=== PATIENT | female | born 2005 | race Caucasian/White ===

== ENCOUNTER 2024-08-07 20:01 | Emergency (ER) | payer OTHER, SELFPAY ==
--- NOTE | 2024-08-07 20:13 | ED_ITS ---
HPI - General Adult General Chief complaint: Abdominal Pain Stated complaint: vomiting and abd pain Time Seen by Provider: 08/07/24 21:32 Source: patient Limitations: no limitations History of Present Illness ED Provider: Vannesa Toscano PA-C HPI narrative: 18-year-old female presents with the acute onset nausea vomiting. Associated upper abdominal discomfort, with loose stools. Denies known sick contacts with similar symptoms. No use of antibiotics recent travel or hospitalization. Related Data Previous Rx's ?Medication ?Instructions ?Recorded ondansetron HCl 4 mg tablet 4 mg PO Q8H PRN nausea and 08/07/24 vomiting #10 tabs sucralfate 100 mg/mL oral 10 ml PO QID PRN indigestion #300 08/07/24 suspension (Carafate) mL Allergies Allergy/AdvReac Type Severity Reaction Status Date / Time No Known Allergies Allergy Verified 08/07/24 20:15 Review of Systems 2 Review of Systems: Yes all other systems are reviewed and are negative Constitutional: Constitutional: Denies fatigue and Denies fever(s) Cardiovascular: Cardiovascular: Denies chest pain and Denies dyspnea Respiratory: Respiratory: Denies chest congestion, Denies cough and Denies dyspnea Gastrointestinal: Gastrointestinal: Reports abdominal pain, Reports diarrhea, Reports nausea and Reports vomiting Endocrine: Endocrine: Denies fatigue PMFSH Past Medical History Attestation statement: The following information was validated with the patient. Social History Social History Smoked in Last 30 Days: No Use of substances other than those prescribed or required for medical reasons: No Advance Directives: No Advance Directives Information Provided: No Do you have a plan to hurt others: No Plan Patient : No Physical Exam ED Vital Signs: Vital Signs - 24 hr 08/07/24 20:15 Temperature 97.3 F Pulse Rate 98 Respiratory Rate 16 Blood Pressure 117/74 Pulse Oximetry 98 Oxygen Delivery Method Room Air BMI result Body Mass Index 21.8 Const Other: Alert Orientation/consciousness: patient oriented x3 Resp Effort & Inspection: normal respiratory effort Cardio Other: normal peripheral perfusion GI Other: abdomen is soft, nontender nondistended no guarding Skin Other: warm dry no rash Neuro General: patient oriented x3, gait normal, no focal motor deficits and CN's II- XI intact bilaterally Psych Other: cooperative Course Course Course Narrative: RME performed by Pratibha Manzo PA-C. Patient is a 18 year old assigned female at presenting to the emergency department with epigastric pain, nausea, and vomiting. Detailed physical exam and review of systems are deferred to the placement secretary. Labs and swabs ordered. Patient placed back in the waiting room pending room availability and results. Reevaluation(s) Reevaluation #1: Pt feels better eager for discharge Time: 23:35 Medications Administered Discontinued Medications Generic Name Dose Route Start Last Admin Trade Name Cristhian PRN Reason Stop Dose Admin Sodium Chloride 1,000 mls @ 999 mls/hr 08/07/24 22:15 08/07/24 23:14 Ns IV 08/07/24 23:15 Infused .Q1H1M LOKI Infusion Ondansetron HCl 4 mg 08/07/24 22:13 08/07/24 22:31 Ondansetron Hcl 4 Mg/2 Ml Vial IVPUSH 08/07/24 22:14 4 mg ONCE ONE Administration Sucralfate 1 gm 08/07/24 22:19 08/07/24 22:31 Sucralfate Oral Suspension 1 Gm/10 Ml Oral.Susp PO 08/07/24 22:20 1 gm ONCE ONE Administration Medical Decision Making Medical Decision Making MDM Narrative: 18-year-old female presents with the acute onset nausea vomiting. Associated upper abdominal discomfort, with loose stools. Denies known sick contacts with similar symptoms. No use of antibiotics recent travel or hospitalization. no chronic issues History: Per patient I have considered the following differential diagnoses: Biliary colic, cholecystitis, gastritis, GERD, pancreatitis, viral gastroenteritis, C diff, traveler's diarrhea Plan: Screening labs obtained from triage everything is unremarkable I added on a viral panel. To note she has a friend with her, who is actively vomiting in the room as well, the patient is still denies that she has sick contacts with similar symptoms. This is sounding like viral gastro. We will give Carafate Zofran and fluid. She has no risk factors for C diff or traveler's diarrhea. Thought about underlying biliary versus gastric versus pancreatic etiology as cause for symptoms, however she is not having post prandial pain, her abdominal exam was benign and LFTs are normal. No indication for imaging. I have independently reviewed the following tests: Labs: Slight leukocytosis, not anemic, no electrolyte abnormality, not , urine not infected viral panel negative Lab Data 08/07/24 20:26 08/07/24 20:26 Labs: Lab Results 08/07/24 08/07/24 Range/Units 20:26 22:34 WBC 12.1 H (4.8-10.8) X10*3/uL RBC 4.72 (4.20-5.50) X10*6/uL Hgb 13.9 (12.0-16.0) g/dl Hct 41.4 (37.0-47.0) % MCV 87.7 (80.0-98.0) fL MCH 29.4 (27.0-33.0) pg MCHC 33.6 (31.0-35.0) g/dl RDW 13.1 (11.0-16.0) % Plt Count 351 (160-400) X10*3/uL MPV 10.1 (9.4-12.3) fL Immature Gran % (Auto) 0.3 (0.0-0.4) % Neut % (Auto) 90.0 H (45-73) % Lymph % (Auto) 6.0 L (20-40) % [place] % (Auto) 3.3 (2-11) % Eos % (Auto) 0.2 (0-4) % Baso % (Auto) 0.2 (0-2) % Lymph # (Auto) 0.7 L (1.2-4.9) X10*3/uL [place] # (Auto) 0.4 (0.1-1.2) X10*3/uL Eos # (Auto) 0.0 (0.0-0.4) X10*3/uL Baso # (Auto) 0.0 (0.0-0.2) X10*3/uL Abs Immat Gran (auto) 0.04 H (0.00-0.03) X10*3/uL Absolute Neuts (auto) 10.9 H (2.0-8.3) x10*3/uL Absolute Nucleated RBC 0.000 (0.0-0.012) X10*3/uL Nucleated RBC % (auto) 0.0 (0.0-0.2) /100WBC Sodium 139 (135-145) mmol/L Potassium 3.9 (3.3-5.1) mmol/L Chloride 107 (96-108) mmol/L Carbon Dioxide 23 (22-29) mmol/L Anion Gap 13 (12-20) BUN 9 (9-16) mg/dL Creatinine 0.64 (0.5-1.4) mg/dL Estim Creat Clear Calc 142.5 Estimated GFR > 60 Random Glucose 92 (60-115) mg/dL Calcium 9.2 (8.4-10.2) mg/dL Magnesium 1.8 (1.6-2.6) mg/dL Total Bilirubin 1.0 (0.0-1.0) mg/dL AST 21 (5-31) U/L ALT 13 (0-31) U/L Alkaline Phosphatase 78 (39-117) U/L Total Protein 7.4 (6.5-8.0) g/dL Albumin 4.7 (3.5-5.0) g/dL Lipase 14 (8-78) U/L Beta HCG, Quant < 2 mIU/mL Urine Color Yellow Urine Appearance Clear Urine pH 5.5 (5.0-9.0) Ur Specific [place] 1.020 (1.005-1.025) Urine Protein Negative (Neg-Trace) mg/dL Urine Glucose (UA) Negative (Negative) mg/dL Urine Ketones Negative (Negative) mg/dL Urine Blood Negative (Negative) Urine Nitrite Negative (Negative) Ur Leukocyte Esterase Negative (Negative) Influenza Type A (PCR) NEGATIVE (Negative) Influenza Type B (PCR) NEGATIVE (Negative) RSV RNA Qual (PCR) NEGATIVE (Negative) SARS-CoV-2 RNA (RT-PCR) NEGATIVE (Negative) Discharge Plan Discharge Clinical Impression: Gastroenteritis Patient Disposition: Home, Self-Care Instructions: Gastroenteritis (ED) Additional Instructions: all of your screening labs were normal including a urinalysis and viral panel. You were tested for influenza RSV and COVID. This is likely viral gastroenteritis. See home care instructions. Uses Zofran as needed for nausea, use the Carafate as needed for upper abdominal discomfort. Follow up with your primary care provider as needed. Prescriptions: New sucralfate [Carafate] 100 mg/mL suspension 10 ml PO QID PRN (Reason: indigestion) Qty: 300 0RF Rx Instructions: swish in mouth and swallow; use after food/drink ondansetron HCl 4 mg tablet 4 mg PO Q8H PRN (Reason: nausea and vomiting) Qty: 10 0RF Stand Alone Forms: Work/School Release Print Language: Serbian
[2024-08-07 20:15] VITALS: BP 117/74; PULSE 98; RESP 16; TEMP 36.3; O2SAT 98; BMI 21.8
[2024-08-07 20:35] LABS: MANUAL DIFF FLAG NO
[2024-08-07 20:36] LABS: Basophils Percent Auto 0.2 % (0-2); Eosinophils Percent Auto 0.2 % (0-4); Hematocrit 41.4 % (37.0-47.0); Hemoglobin 13.9 g/dl (12.0-16.0); Imm Gran Abs Auto 0.04 X10*3/uL (0.00-0.03); Imm Gran Pct Auto 0.3 % (0.0-0.4); Lymphocytes Absolute Auto 0.7 X10*3/uL (1.2-4.9); Mean Corpuscular HGB Conc 33.6 g/dl (31.0-35.0); Mean Corpuscular Hemoglobin 29.4 pg (27.0-33.0); Mean Corpuscular Volume 87.7 fL (80.0-98.0); Mean Platelet Volume 10.1 fL (9.4-12.3); Monocytes Absolute Auto 0.4 X10*3/uL (0.1-1.2); Monocytes Percent Auto 3.3 % (2-11); Neutrophils Absolute Auto 10.9 x10*3/uL (2.0-8.3); Platelet Count 351 X10*3/uL (160-400); Red Blood Count 4.72 X10*6/uL (4.20-5.50); Red Cell Distribution Width 13.1 % (11.0-16.0); White Blood Count 12.1 X10*3/uL (4.8-10.8)
[2024-08-07 20:38] LABS: Appearance Urine Clear; Color Urine Yellow; Glucose Urine UA Negative (Negative); Leukocyte Esterase Urine Negative (Negative); Nitrite Urine Negative (Negative); PH 5.5 (5.0-9.0); Urine Blood Negative (Negative); Urine Ketones Negative (Negative); Urine Protein Negative (Neg-Trace)
[2024-08-07 21:02] LABS: Alanine Aminotransferase 13 U/L (0-31); Albumin Level 4.7 g/dL (3.5-5.0); Alkaline Phosphatase 78 U/L (39-117); Anion Gap 13 (12-20); Aspartate Amino Transferase 21 U/L (5-31); Blood Urea Nitrogen 9 mg/dL (9-16); Calcium 9.2 mg/dL (8.4-10.2); Carbon Dioxide 23 mmol/L (22-29); Chloride 107 mmol/L (96-108); Creatinine Clr Calc Pharmacy 142.5; Estimated Glomerular Filt Rate > 60; Glucose Random 92 mg/dL (60-115); Lipase 14 U/L (8-78); Magnesium 1.8 mg/dL (1.6-2.6); Potassium 3.9 mmol/L (3.3-5.1); Sodium 139 mmol/L (135-145); Total Protein 7.4 g/dL (6.5-8.0)
[2024-08-07 21:10] LABS: HCG Quantitative < 2 mIU/mL
[2024-08-07] MEDS: Sucralfate Oral Suspension 1 GM/10 ML ORAL.SUSP PO (22:31)
[2024-08-07] MEDS: 0.9 % Sodium Chloride 1,000 ML 999 ML IV (22:31)
[2024-08-07] MEDS: ondansetron HCL 4 MG/2 ML VIAL IVPUSH (22:31)
--- NOTE | 2024-08-07 22:49 | PC.NURSE ---
pt a&ox4, respirations even and unlabored. pt reports intermittent nausea and vomiting x1 week, pt reports increased epigastric pain at this time. denies diarrhea. 20g placed in right ac, medicated per mar, fluids administering.
[2024-08-07 23:19] LABS: Influenza A PCR NEGATIVE (Negative); Influenza B PCR NEGATIVE (Negative); Resp Syncy Virus RNA Qual PCR NEGATIVE (Negative); SARS COV2 PCR INHOUSE NEGATIVE (Negative)
[2024-08-07 23:42] VITALS: BP 99/51; PULSE 87; RESP 18; TEMP 36.9; O2SAT 100
== END 2024-08-07 23:43 | disposition home or self-care (01) ==
PROVIDERS: Physician Assistant Medical; Emergency Provider Emergency Medicine Emergency Medical Services
DX: K52.9 Noninfective gastroenteritis and colitis, unspecified (principal); R11.2 Nausea with vomiting, unspecified; R10.13 Epigastric pain; R10.10 Upper abdominal pain, unspecified; R10.2 Pelvic and perineal pain; Z03.818 Encounter for observation for suspected exposure to other biological agents ruled out
CPT/HCPCS: 0241U; 36415; 80053; 81003; 83690; 83735; 84702; 85025; 96361; 96374; 99284; 99285; J2405